=== PATIENT | male | born 1990 | race Caucasian/White ===

== ENCOUNTER 2021-07-12 09:25 | Emergency (ER) | payer OTHER, SELFPAY ==
--- NOTE | 2021-07-12 09:31 | ED.DENTAL ---
HPI - Dental/Oral General Chief complaint: Dental/Oral Stated complaint: Toothache Time Seen by Provider: 07/12/21 09:31 Source: patient Mode of arrival: ambulatory Limitations: no limitations History of Present Illness HPI Narrative: Mr. Joyce is a 30-year-old male patient presenting to the clinic today with complaints of toothache for an unknown amount of time however the patient reports that it has gotten worse over the last couple hours. He reports he was in the ER last night and had to wait 6 hours and it does not sound as though he was seen. States pain is mild at this time rating pain about a 2 out of 3. He said there are a couple teeth affected in the upper right molars. No fever chills. Related Data Allergies Allergy/AdvReac Type Severity Reaction Status Date / Time ibuprofen Allergy Hallucinati Verified 07/12/21 09:47 ng Review of Systems Review of Systems: Pertinent positives per HPI. Patient denies any fever, chills, rash, headache, visual changes, dizziness, cough, runny nose, sore throat, shortness of breath, chest pain, palpitations, nausea, vomiting, diarrhea, constipation, abdominal pain, or any urinary issues. PMFSH Comments At the time of my signature, I reviewed and agree with the nursing past medical, surgical, social, and family history. There is no relevant family history pertinent to the patient complaint. Exam Narrative: General: Well-developed, well nourished, in no apparent distress Head: Normocephalic, atraumatic. Mouth: Oropharynx without lesions or masses, poor dentition, MMM. Right upper molars tenderness to palpation with noted gum swelling. No discharge or abscess visualized. Neck: Supple, trachea midline, no enlargement of anterior or posterior cervical nodes, no thyroid masses or goiter palpable. Cardio: Regular rate and rhythm, s1 and s2 normal, no murmur appreciated. Resp: Clear to auscultation bilaterally anteriorly and posteriorly, no rhonchi, rales, wheezing or rubs Course Course Emergency Course: Portions of this record may have been created with voice recognition software. Level of Care: Express Care Visit Vital Signs Vital signs: Vital signs reviewed MDM - Dental/Oral MDM Narrative Medical decision making narrative: No periodontal abscess noted, uvula rises and falls midline, swelling to the gums around the right upper molars. No obvious abscess or discharge noted. Very poor dentition. Differential Diagnosis Differential diagnosis: Likely gingival abscess, dental abscess and other (Peridontal abscess) Discharge Plan Discharge Clinical Impression: Toothache Patient Disposition: Home, Self-Care Condition: Stable Instructions: Antibiotic Form, Toothache (ED) Additional Instructions: Follow-up with dentist as soon as possible. Tylenol/Motrin as needed for pain or fever Take prescriptions only as prescribed Follow-up with your PCP in 3 to 5 days if symptoms persist Prescriptions: New amoxicillin 500 mg capsule 500 mg PO Q8H 10 Days Qty: 30 RF: 0 Follow-up/Referrals: PHYSICIAN,AUTO GLASS TECHNICIAN [Primary Care Provider] - Time of Disposition: 09:45 Quality NIHSS Nursing Documentation ED NIHSS nursing documentation: reviewed/agree
[2021-07-12 09:32] VITALS: BP 140/79; PULSE 107; RESP 16; TEMP 37.1; O2SAT 98
== END 2021-07-12 09:53 | disposition home or self-care (01) ==
PROVIDERS: Emergency Provider Nurse Practitioner Family
DX: K08.89 Other specified disorders of teeth and supporting structures (principal)
CPT/HCPCS: 99213; G0463

== ENCOUNTER 2021-07-23 18:01 | Emergency (ER) | payer OTHER, SELFPAY ==
[2021-07-23 18:13] VITALS: BP 139/87; PULSE 129; RESP 14; TEMP 37.2; O2SAT 97
--- NOTE | 2021-07-23 18:20 | ED.WOUNDLAC ---
HPI - Wound/Laceration General Chief Complaint: Extremity Injury, Upper Stated Complaint: sliced thumb on left hand Time Seen by Provider: 07/23/21 18:44 Source: patient and RN notes reviewed Mode of arrival: ambulatory Limitations: no limitations History of Present Illness HPI narrative: 30-year-old male presents concern for laceration on his left thumb. He reports he cut the digit using a serrated knife while cutting down boxes. He reports he did that earlier today. He denies decrease sensation, strength, range of motion of the digit. Related Data Home Medications Medication Instructions Recorded Confirmed No Home Medications 07/23/21 07/23/21 Allergies Allergy/AdvReac Type Severity Reaction Status Date / Time ibuprofen Allergy Hallucinati Verified 07/23/21 18:28 ng Review of Systems Review of Systems: CONSTITUTIONAL: Denies malaise, chills, sweats, or fever. SKIN: Reports laceration to the palmar aspect of the left thumb MUSCULOSKELETAL: Denies muscle skeletal pain NEUROLOGIC: Denies numbness, weakness All systems reviewed & are unremarkable except as noted in HPI and below PMFSH Comments At time of signature, agree with nursing past medical, surgical, social and family history. There is no relevant family history pertinent to the presenting complaint Exam Narrative: GENERAL: Well-appearing, well-nourished, and in no acute distress. HEAD: Normocephalic EYES: PERRLA, conjunctivae clear NECK: Supple. CHEST: Speaks in full sentences. No respiratory distress. HEART: Regular rate and rhythm. Normal and equal peripheral pulses. EXTREMITIES: First digit of left hand has normal strength and sensation. 5/5 strength with digit flexion, extension. Range of motion normal. No clubbing, cyanosis, or edema noted. No tenderness. Normal digital cascade with flexion of fingers, median, ulnar and radial nerve intact. Normal sensation of each side of finger. Can perform 'okay' sign, 'cross over finger test of index and middle fingers' and 'thumbs up' sign. No scissoring. Normal thumb opposition. Good capillary refill and radial pulse. Distal capillary refill less than 3 seconds. SKIN: Warn, dry, intact, pink.. Superficial laceration noted to the dorsal lateral aspect of the left first digit without surrounding erythema, edema, induration NEURO: Alert and oriented x3. PSYCH: Normal mood and affect Course Course Emergency Course: Patient expresses his preference for glue. Explained risks versus benefits of glue versus sutures. Including glue may not last as long and may deteriorate before the wound is fully healed. Patient verbalized understanding of this and still expresses wish for glue versus sutures. Patient is aware of diagnosis, understands and agrees to treatment plan. Anticipatory guidance given. Patient agrees to follow-up as directed and is aware of reasons to seek care at the emergency department. Portions of this record may have been created with voice recognition software Level of Care: Express Care Visit Vital Signs Vital signs: Reviewed. Procedures Laceration Laceration 1: Date: 07/23/21 Time: 18:50 Site: hand Size (cm): 1.5 Description: linear Depth: simple, single layer Pre-repair: wound explored and irrigated ====== Skin Level ====== Skin layer closed with: dermabond and steri strips ====== Subcutaneous Layer ====== ====== Muscle Layer ====== ====== Tendon Layer ====== MDM - Wound/Laceration MDM Narrative Medical decision making narrative: Wound explored for foreign body and copious irrigation provided with no evidence of FB. Discussed the potential of retained foreign body with the patient and signs/symptoms that should prompt the patient to immediately go to the ED for reevaluation. The laceration was identified to be 1.5 cm in length and located at first digit of left hand. The laceration was cleansed with [employer]
== END 2021-07-23 19:10 | disposition home or self-care (01) ==
PROVIDERS: Emergency Provider Nurse Practitioner
DX: S61.012A Laceration without foreign body of left thumb without damage to nail, initial encounter (principal); W26.0XXA Contact with knife, initial encounter
CPT/HCPCS: 12001; 99212; G0463

== ENCOUNTER 2021-12-10 19:46 | Emergency (ER) | payer OTHER, SELFPAY ==
[2021-12-10 19:50] VITALS: BP 144/91; PULSE 104; RESP 20; TEMP 36.3; O2SAT 98
--- NOTE | 2021-12-10 19:55 | ED.DENTAL ---
HPI - Dental/Oral General Chief complaint: Dental/Oral Stated complaint: Tooth Pain Time Seen by Provider: 12/10/21 19:55 Mode of arrival: ambulatory History of Present Illness HPI Narrative: NO FEVER. NO JAW SWELLING. NO NECK SWELLING. NO LIMITATION WITH SPEAKING OR SWALLOWING. HAS A HISTORY OF DENTAL CARIES. HAS NOT SEEN A DENTIST RECENTLY. Related Data Home Medications Medication Instructions Recorded Confirmed amitriptyline 25 mg tablet 25 mg PO DAILY 12/10/21 12/10/21 Allergies Allergy/AdvReac Type Severity Reaction Status Date / Time ibuprofen Allergy Hallucinati Verified 12/10/21 19:50 ng Review of Systems Review of Systems: CONSTITUTIONAL: Denies fever, chills, or sweats. EYES: Denies visual changes, redness, or discharge. ENT: Denies rhinorrhea, congestion, sore throat, or otalgia. CARDIOVASCULAR: Denies chest pain, palpitations, or edema. RESPIRATORY: Denies cough or dyspnea. GASTROINTESTINAL: Denies abdominal pain, nausea, vomiting, or diarrhea. GENITOURINARY: Denies dysuria or hematuria. SKIN: Denies rash or itching. MUSCULOSKELETAL: Denies back pain, joint pain, or myalgia. NEUROLOGIC: Denies headache, numbness, or weakness. PSYCHIATRIC: Denies anxiety or depression. PMFSH Comments At time of signature, agree with nursing past medical, surgical, social and family history. There is no relevant family history pertinent to the presenting complaint Exam Narrative: GENERAL: Well-appearing, well-nourished, and in no acute distress. HEAD: Normocephalic, atraumatic. EYES: PERRLA and EOMI. ENT: Nares clear, no rhinorrhea or epistaxis. Mucous membranes moist. NO MELINA APICAL SWELLING, TOOTH TENDER TO PALPATION. NO FACIAL SWELLING. NO TRISMUS. ABLE TO OPEN MOUTH FULLY. NO NECK SWELLING OR CECY'S ANGINA. NO ABSCESS TO BE DRAINED. no drooling, trismus, facial asymmetry or significant neck swelling tooth number 1 NECK: Supple. CHEST: Clear to auscultation. No respiratory distress. HEART: Regular rate and rhythm. No murmur heard. Normal peripheral pulses. ABDOMEN: Soft, nontender, nondistended, normal active bowel sounds. EXTREMITIES: Normal range of motion. No edema. SKIN: Warm, dry, no rash. NEURO: No focal deficits. Alert and oriented x3. [place] Coma Scale Eye Opening: Spontaneous 4 S[place] Coma Scale Motor: Obeys Commands 6 [place] Coma Scale Verbal: Oriented 5 [place] Coma Scale Total 15 Course Course Level of Care: Express Care Visit Vital Signs Vital signs: Vital Signs Temperature 36.3 C L 12/10/21 19:50 Pulse Rate 104 H 12/10/21 19:50 Respiratory Rate 20 12/10/21 19:50 Blood Pressure 144/91 H 12/10/21 19:50 Pulse Oximetry 98 12/10/21 19:50 Oxygen Delivery Room Air 12/10/21 19:50 Temperature 36.3 C L 12/10/21 19:50 Pulse Rate 104 H 12/10/21 19:50 Respiratory Rate 20 12/10/21 19:50 Blood Pressure 144/91 H 12/10/21 19:50 Pulse Oximetry 98 12/10/21 19:50 Oxygen Delivery Room Air 12/10/21 19:50 Addressed elevated BP today. Today's blood pressure higher than recommended range. Discussed importance of follow -up with PCP and possible technician terminal and repeater effects/cardiovascular events related to HTN. Currently patient denies headache, dizziness, vision changes, CP or shortness of breath. MDM - Dental/Oral Differential Diagnosis Differential diagnosis: Likely gingival abscess, dental caries, toothache, dental abscess, fracture of tooth, aphthous ulcer and other Discharge Plan Discharge Clinical Impression: Dental abscess, Toothache, Dental caries, Gingivitis Patient Disposition: Home, Self-Care Condition: Stable Instructions: Antibiotic Form, Dental Abscess (ED), Toothache (ED), Mouth Care (ED) Additional Instructions: Avoid temperature extremes May apply heat or ice to the face Gentle brushing and flossing Antibiotic as directed Tylenol for lesser pain Use ibuprofen regularly Follow-up with the dentist as soon as possible--see the list provi
== END 2021-12-10 20:00 | disposition home or self-care (01) ==
PROVIDERS: Emergency Provider Nurse Practitioner Family
DX: K04.7 Periapical abscess without sinus (principal); K02.9 Dental caries, unspecified; K05.10 Chronic gingivitis, plaque induced
CPT/HCPCS: 99213; G0463

== ENCOUNTER 2022-07-06 08:39 | Emergency (ER) | payer OTHER, SELFPAY ==
[2022-07-06 08:55] VITALS: BP 156/79; PULSE 124; RESP 20; TEMP 37.2; O2SAT 98
== END 2022-07-06 08:55 | disposition left against medical advice (07) ==
LOC: EXPBETH 08:42
PROVIDERS: Emergency Provider Nurse Practitioner Family
DX: Z53.21 Procedure and treatment not carried out due to patient leaving prior to being seen by health care provider (principal)
CPT/HCPCS: 99199

== ENCOUNTER 2022-08-18 04:51 | Emergency (ER) | payer OTHER, SELFPAY ==
--- NOTE | ~2022-08-18 | XR_ITS ---
Portable chest x-ray Comparison: None Clinical History: Chest pain Findings: Lungs are clear, without focal consolidation or pleural effusion. Cardiomediastinal silho uette is unremarkable. Bones and soft tissues are unremarkable. Impression: Clear lungs. Reviewed, dictated and finalized at location M. Impression: Clear lungs.
--- NOTE | 2022-08-18 04:58 | ECG_ITS ---
Measurements Intervals [place] Rate: 106 P: 75 RI: 132 QRS: 49 QRSD: 82 T: 56 QT: 318 QTc: 423 Interpretive Statements SINUS TACHYCARDIA POSSIBLE RIGHT VENTRICULAR CONDUCTION DELAY [RSR (QR) IN V1/V2] BORDERLINE ECG NO PREVIOUS ECG AVAILABLE FOR COMPARISON Electronically Signed On 08-18-2022 16:43:55 CDT by Leroy Richards M.D.
[2022-08-18 05:15] VITALS: BP 142/97; PULSE 101; RESP 17; O2SAT 100
[2022-08-18 05:19] LABS: Basophils Absolute Auto 0.1 K/mm3 (0.0-0.1); Basophils Percent Auto 1.6 % (0.2-1.2); Eosinophils Absolute Auto 0.1 K/mm3 (0-0.3); Hemoglobin 15.2 g/dL (14.0-18.0); Immature Granulocyte Absolute 0.01 K/mm3 (0.00-0.031); Immature Granulocyte Percent A 0.2 % (0-0.5); Lymphocytes Absolute Auto 2.29 K/mm3 (0.9-3.2); Lymphocytes Percent Auto 41.8 % (18.3-44.2); Mean Corpuscular HGB Conc 34.5 g/dl (32-36); Mean Corpuscular Hemoglobin 31.9 pg (26-34); Mean Corpuscular Volume 92.2 fl (80-100); Mean Platelet Volume 9.7 fl (7.4-10.4); Monocytes Absolute Auto 0.7 K/mm3 (0.1-0.6); Monocytes Percent Auto 12.4 % (2.6-8.5); Neutrophils Absolute Auto 2.3 K/mm3 (1.3-6.7); Platelet Count Result 252 k/mm3 (150-375); Red Blood Count 4.77 M/mm3 (4.6-6.20); Red Cell Distribution Width 12.3 % (11.5-14.5); White Blood Count 5.5 K/mm3 (4.5-10.0)
[2022-08-18 05:31] LABS: Alanine Aminotransferase 27 U/L (6-50); Albumin Level 4.4 g/dL (3.5-5.1); Alkaline Phosphatase 82 U/L (38-126); Anion Gap 7 mmol/L (8-16); Aspartate Amino Transferase 36 U/L (17-59); Bilirubin,Total 0.5 mg/dL (0.2-1.3); Blood Urea Nitrogen 5 mg/dL (9-20); Calcium 8.7 mg/dL (8.4-10.2); Carbon Dioxide 33 mmol/L (22-30); Chloride 101 mmol/L (98-107); Estimated CRCL calculation 135 ml/min; Estimated Glomerular Filt Rate > 60; Glucose 119 mg/dL (65-110); Potassium 3.6 mmol/L (3.4-5.0); Sodium 141 mmol/L (137-145)
[2022-08-18 05:42] LABS: Troponin I < 0.012 ng/mL (0.000-0.034)
[2022-08-18 06:22] VITALS: BP 143/64; PULSE 96; RESP 17; O2SAT 98
[2022-08-18 06:41] LABS: Ethanol 251 mg/dL (<10)
--- NOTE | 2022-08-18 07:08 | ED.GENADULT ---
HPI - General Adult General Chief complaint: Chest Pain <Augustine Feliz MD - Last Filed: 08/18/22 07:16> Stated complaint: cp <Augustine Feliz MD - Last Filed: 08/18/22 07:16> Time Seen by Provider: 08/18/22 05:24 <Augustine Feliz MD - Last Filed: 08/18/22 07:16> History of Present Illness HPI narrative: Patient is a 31-year-old gentleman who presents the emergency department with a chief complaint of chest pain. The patient reports has been under an immense amount of stress lately and reports that he started having a burning and heaviness sensation in the left side of his chest. Patient reports that its been there for 2 weeks reports that it comes and goes and last for about 30 minutes to an hour. Patient reports no prior history of cardiac disease reports that he has been drinking a lot of alcohol lately <Augustine Feliz MD - Last Filed: 08/18/22 07:16> Related Data Home medications: Home Medications Medication Instructions Recorded Confirmed amitriptyline 25 mg tablet 25 mg PO DAILY 12/10/21 12/10/21 <Augustine Feliz MD - Last Filed: 08/18/22 07:16> Allergies/adverse reactions: Allergies Allergy/AdvReac Type Severity Reaction Status Date / Time ibuprofen Allergy Hallucinati Verified 12/10/21 19:50 ng <Augustine Feliz MD - Last Filed: 08/18/22 07:16> Review of Systems Review of Systems: A 10 system review of systems was completed on the patient and is negative except for what is stated in the HPI. Nursing and ancillary documentation was reviewed. <Augustine Feliz MD - Last Filed: 08/18/22 07:16> Exam Narrative: GENERAL: Well-appearing, well-nourished, and in no acute distress. HEAD: Normocephalic, atraumatic. EYES: PERRLA and EOMI. ENT: Nares clear, no rhinorrhea or epistaxis. Mucous membranes moist. NECK: Supple. CHEST: Clear to auscultation. No respiratory distress. HEART: Regular rate and rhythm. No murmur heard. Normal peripheral pulses. ABDOMEN: Soft, nontender, nondistended, normal active bowel sounds. EXTREMITIES: Normal range of motion. No edema. SKIN: Warm, dry, no rash. NEURO: No focal deficits. Alert and oriented x3. PSYCH: Normal mood and affect. <Augustine Feliz MD - Last Filed: 08/18/22 07:16> Course Reevaluation(s) Reevaluation #1: Patient laying down in bed, comfortable, denying any symptoms <Sara Stanton MD - Last Filed: 08/18/22 08:47> Date: 08/18/22 <Sara Stanton MD - Last Filed: 08/18/22 08:47> Time: 08:46 <Sara Stanton MD - Last Filed: 08/18/22 08:47> Vital Signs Vital signs: Vital Signs Pulse Rate 101 H 08/18/22 05:15 Respiratory Rate 17 08/18/22 05:15 Blood Pressure 142/97 H 08/18/22 05:15 Pulse Oximetry 100 08/18/22 05:15 Pulse Rate 96 08/18/22 08:20 Respiratory Rate 17 08/18/22 08:20 Blood Pressure 115/73 08/18/22 08:20 Pulse Oximetry 96 08/18/22 08:20 <Augustine Feliz MD - Last Filed: 08/18/22 07:16> Vital Signs Pulse Rate 101 H 08/18/22 05:15 Respiratory Rate 17 08/18/22 05:15 Blood Pressure 142/97 H 08/18/22 05:15 Pulse Oximetry 100 08/18/22 05:15 Pulse Rate 96 08/18/22 08:20 Respiratory Rate 17 08/18/22 08:20 Blood Pressure 115/73 08/18/22 08:20 Pulse Oximetry 96 08/18/22 08:20 <Sara Stanton MD - Last Filed: 08/18/22 08:47> Medical Decision Making MDM Narrative Medical decision making narrative: Differential diagnosis includes ACS, atypical chest pain, EKG showed sinus tachycardia rate of [address] elevation or ST depression Laboratory studies were obtained which showed an EtOH of 251 electrolytes were within normal limits initial troponin is undetectable Chest x-ray shows no focal infiltrate. <Augustine Feliz MD - Last Filed: 08/18/22 07:16> Vital Signs Vital Signs: Vital Signs Pulse Rate 10
[2022-08-18 07:29] VITALS: BP 122/80; PULSE 90; PULSE 94; RESP 18; O2SAT 96
[2022-08-18 08:20] VITALS: BP 115/73; PULSE 96; RESP 17; O2SAT 96
[2022-08-18 08:33] LABS: Troponin I < 0.012 ng/mL (0.000-0.034)
== END 2022-08-18 09:03 | disposition home or self-care (01) ==
PROVIDERS: Emergency Provider Emergency Medicine
DX: R07.89 Other chest pain (principal); F10.10 Alcohol abuse, uncomplicated; Y90.8 Blood alcohol level of 240 mg/100 ml or more; F41.9 Anxiety disorder, unspecified; R00.0 Tachycardia, unspecified; R94.31 Abnormal electrocardiogram [ECG] [EKG]
CPT/HCPCS: 36415; 71045; 80053; 80307; 84484; 85025; 93005; 99284